=== PATIENT | female | born 1955 | race Caucasian/White ===

== ENCOUNTER 2021-04-28 05:56 | Inpatient (IN) | payer MEDICARE, OTHER ==
[~2021-04-28] VITALS: Ht 157.5 cm; Wt 56.2 kg
[~2021-04-28 05:56] MED LIST: AMOCLA875 PO; HYDR1TAB94 PO; ISTALOL2.5 ML LEFTEYE; SERT100 PO
--- NOTE | 2021-04-28 18:42 | NUR ---
SHIFT SUMMARY EATING, DRINKING, VOIDING WELL. WORKED W/ PT&OT. PAIN WELL MANAGED. PLEASANT & COOPERATIVE. CONSTANCE FORDL.
--- NOTE | 2021-04-29 04:01 | NUR ---
SHIFT SUMMARY: POD 1 LEFT TOTAL SHOULDER REPAIR PATIENT IS ALERT AND ORIENTED X4 WHILE AWAKE THOUGH HAS BEEN ABLE TO SLEEP MAJORITY OF THE SHIFT. VS ARE WNL AND IS ON RA. PAIN IS MANAGED WITH TORADOL AND TYLENOL. IMMBOLIZER IS IN PLACE FOR HER LEFT SHOULDER. SHE IS ABLE TO WIGGLE FINGERS AND HAS <3 SEC CAP REFILL. PATIENT IS A SBA TO USE THE BATHROOM. IV IS WNL AND IS ABLE TO FLUSH WELL. PATIENT IS VOIDING AND TOLERATING PO INTAKE. AQUACEL IS C/D/I. CALLS APPROPRIATELY. CALL LIGHT WITHIN REACH. THE PLAN IS TO BE DISCHARGED HOME LATER TODAY.
[2021-04-29 05:25] LABS: BASOPHILS ABSOLUTE AUTO 0.02 K/mm3 (0.00-0.23); BASOPHILS PERCENT AUTO 0 % (0-2); EOSINOPHILS PERCENT AUTO 0 % (0-6); Hematocrit 43.2 % (33.0-51.0); Hemoglobin 14.6 g/dL (11.5-16.0); IMMATURE GRAN ABSOLUTE AUTO 0.03 K/mm3 (0.00-0.10); IMMATURE GRAN PERCENT AUTO 0 % (0-1); LYMPHOCYTES PERCENT AUTO 13 % (21-46); MONOCYTES ABSOLUTE AUTO 0.93 K/mm3 (0.16-1.47); MONOCYTES PERCENT AUTO 8 % (4-13); Mean Corpuscular HGB 30.2 pg (26.0-34.0); Mean Corpuscular HGB Conc 33.8 g/dL (31.5-36.5); Mean Corpuscular Volume 89 fL (80-100); Mean Platelet Volume 10.7 fL (9.1-12.4); NEUTROPHILS ABSOLUTE AUTO 8.74 K/mm3 (1.96-9.15); NEUTROPHILS PERCENT AUTO 79 % (41-73); Platelet Count 139 K/mm3 (150-400); RDW Standard Deviation 42.7 fL (35.1-46.3); Red Blood Cell Count 4.84 M/mm3 (3.80-5.20); White Blood Cell Count 11.12 K/mm3 (4.00-11.30)
[2021-04-29 05:48] LABS: Anion Gap 7 mmol/L (6-16); Blood Urea Nitrogen 15 mg/dL (8-24); Bun/Creatinine Ratio 16.5 (12.0-20.0); CO2, Blood 23 mmol/L (21-32); Calcium, Blood 8.9 mg/dL (8.5-10.1); Chloride, Blood 108 mmol/L (98-108); Creatinine, Blood 0.91 mg/dL (0.40-1.00); Glomerular Filtration Rate >60 (60-); Glucose, Blood 102 mg/dL (70-99); Magnesium, Blood 2.6 mg/dL (1.6-2.4); Sodium, Blood 138 mmol/L (136-145)
[2021-04-29] MEDS ORDERED: ACET500 PO (10:35)
[2021-04-29] MEDS ORDERED: OXYC5 PO (10:36)
--- NOTE | 2021-04-29 12:30 | NUR ---
DISCHARGE PT CLEARED THERAPY. PAIN WELL CONTROLLED. EATING, DRINKING, VOIDING WELL. SCRIPTS, DRSGS, & POLAR PACK SENT. ESCORTED OUT VIA W/C.
== END 2021-04-29 12:54 | disposition home or self-care (01) | DRG 483 ==
LOC: SURS 05:56 → PRE IP 07:30 → SURS 11:41
PROVIDERS: ADMIT Orthopaedic Surgery
PROC: 0LS40ZZ Reposition Left Upper Arm Tendon, Open Approach (ICD-10-PCS; 2021-04-28)
PROC: 0RRK0JZ Replacement of Left Shoulder Joint with Synthetic Substitute, Open Approach (ICD-10-PCS; principal; 2021-04-28 07:30)
DX: M19.012 Primary osteoarthritis, left shoulder (principal); Z79.899 Other long term (current) drug therapy; Z98.890 Other specified postprocedural states; Z87.891 Personal history of nicotine dependence
CPT/HCPCS: 36415; 73030; 80048; 83735; 85025; 97110; 97162; 97166; 97530; 97535; A9270; C1776; J0690; J1100; J1885; J2250; J2405; J2704; J3010; J7120

== ENCOUNTER → 2022-08-24 | Outpatient (CLI) | payer OTHER ==
[~2022-08-24] MED LIST changes: +ACET500 PO; +OXYC5 PO
[2022-08-25 15:10] LABS: HPV 16 Negative (Negative); HPV 18 Negative (Negative); HPV OTHER HR TYPES Negative (Negative)
== END ==
LOC: LAB 10:00 → LAB SHORT 10:00 → RAD SHORT 10:00
PROVIDERS: Family Medicine
DX: Z01.419 Encounter for gynecological examination (general) (routine) without abnormal findings (principal)
CPT/HCPCS: 87624; G0123

== ENCOUNTER 2022-10-27 13:12 | Emergency (ER) | payer OTHER ==
[~2022-10-27] VITALS: Ht 157.5 cm; Wt 56.7 kg
[2022-10-27 13:45] LABS: BASOPHILS ABSOLUTE AUTO 0.02 K/mm3 (0.00-0.23); BASOPHILS PERCENT AUTO 0 % (0-2); EOSINOPHILS ABSOLUTE AUTO 0.01 K/mm3 (0.00-0.68); EOSINOPHILS PERCENT AUTO 0 % (0-6); Hematocrit 48.6 % (33.0-51.0); Hemoglobin 17.1 g/dL (11.5-16.0); IMMATURE GRAN ABSOLUTE AUTO 0.01 K/mm3 (0.00-0.10); IMMATURE GRAN PERCENT AUTO 0 % (0-1); LYMPHOCYTES ABSOLUTE AUTO 1.08 K/mm3 (0.84-5.20); LYMPHOCYTES PERCENT AUTO 17 % (21-46); MONOCYTES ABSOLUTE AUTO 0.34 K/mm3 (0.16-1.47); MONOCYTES PERCENT AUTO 5 % (4-13); Mean Corpuscular HGB 30.2 pg (26.0-34.0); Mean Corpuscular HGB Conc 35.2 g/dL (31.5-36.5); Mean Corpuscular Volume 86 fL (80-100); Mean Platelet Volume 10.8 fL (9.1-12.4); NEUTROPHILS ABSOLUTE AUTO 4.89 K/mm3 (1.96-9.15); NEUTROPHILS PERCENT AUTO 77 % (41-73); Platelet Count 187 K/mm3 (150-400); RDW Coefficient Variation 12.9 % (11.7-14.2); RDW Standard Deviation 40.2 fL (35.1-46.3); Red Blood Cell Count 5.67 M/mm3 (3.80-5.20); White Blood Cell Count 6.35 K/mm3 (4.00-11.30)
[2022-10-27 14:11] LABS: Albumin, Blood 4.2 g/dL (3.4-5.0); Albumin/Globulin Ratio 1.2 (0.8-1.8); Bilirubin, Total 0.8 mg/dL (0.1-1.0); Bun/Creatinine Ratio 18.8 (12.0-20.0); Calcium, Blood 10.2 mg/dL (8.5-10.1); Creatinine, Blood 0.8 mg/dL (0.40-1.00); Globulin, Blood 3.6 g/dL (2.2-4.0); Potassium, Blood 3.8 mmol/L (3.5-5.5); Total Protein, Blood 7.8 g/dL (6.4-8.2)
[2022-10-27 14:13] LABS: Influenza A, PCR NEGATIVE (NEGATIVE); Influenza B, PCR NEGATIVE (NEGATIVE); Resp Syncytial Virus, PCR NEGATIVE (NEGATIVE); SARS-Cov-2 (COVID-19) PCR, MMC NEGATIVE (NEGATIVE)
[2022-10-27] MEDS ORDERED: MECL25 PO (21:34)
[2022-10-27] MEDS ORDERED: ONDA4ODT MM (21:34)
== END 2022-10-27 21:52 | disposition home or self-care (01) ==
LOC: ER 13:12
PROVIDERS: Physician Assistant
DX: R42 Dizziness and giddiness (principal); Z79.899 Other long term (current) drug therapy; Z20.822 Contact with and (suspected) exposure to COVID-19
CPT/HCPCS: 0241U; 36415; 71045; 80053; 84484; 85025; 93005; 93010; A9270; J2405

== ENCOUNTER 2023-12-23 12:28 | Day surgery (SDC) | payer OTHER ==
[~2023-12-23] VITALS: Ht 157.5 cm; Wt 60.7 kg
[~2023-12-23 12:28] MED LIST changes: +Balanced Salt Epinephrine Irrigation Solution 500 mL IR SCH; +Lidocaine HCl/Pf 1% 5 ML VIAL XX SCH; +MECL25 PO; +Moxifloxacin HCL 0.5 MG/0.1 ML 0.4MLSYR RIGHTEYE SCH; +NS 500 ML IV ONE; +ONDA4ODT MM; +PHENYLEPHRINE\\TROPICAMIDE\\TETRACAINE OPHTHALMIC DILATING SOLN RIGHTEYE PRN; +Phenylephrine Frt 10% Opth (ORSC) ONE; +Povidone-Iodine 450 DROP/30 ML Solution ONE; +Povidone-Iodine 450 DROP/30 ML Solution RIGHTEYE SCH; -SERT100 PO; +SERT50; +TIMO.5OPSO LEFTEYE; +Triamcinolone Inj Susp 40 MG / ML 1ML Vial INJ SCH; +Triamcinolone Inj Susp 40 MG / ML 1ML Vial ONE
[2023-12-23] MEDS ORDERED: NS 500 ML IV ONE (12:45)
[2023-12-23] MEDS ORDERED: FentaNYL Citrate 50 MCG/ML 2 ML Injection ONE (12:46)
[2023-12-23] MEDS ORDERED: Midazolam HCl 1MG / ML 2ML Vial ONE (12:47)
[2023-12-23] MEDS ORDERED: Tetracaine HCl 0.5% Opth Soln 15 ml XX ONE (13:42)
[2023-12-23 14:16] VITALS: BP 103/78
== END 2023-12-23 14:33 | disposition home or self-care (01) ==
LOC: ORSCSDS 12:28
PROVIDERS: Ophthalmology
PROC: 08RJ3JZ Replacement of Right Lens with Synthetic Substitute, Percutaneous Approach (ICD-10-PCS; principal; 2023-12-23 14:00)
DX: H25.11 Age-related nuclear cataract, right eye (principal); J45.909 Unspecified asthma, uncomplicated; Z86.69 Personal history of other diseases of the nervous system and sense organs; F41.9 Anxiety disorder, unspecified; F32.A Depression, unspecified; H40.9 Unspecified glaucoma; Z79.899 Other long term (current) drug therapy
CPT/HCPCS: J2250; J3010; J3301; J7040; V2632

== ENCOUNTER 2025-05-16 11:43 | Day surgery (SDC) | payer OTHER ==
[~2025-05-16] VITALS: Ht 157.5 cm; Wt 60.8 kg
[~2025-05-16 11:43] MED LIST changes: -Balanced Salt Epinephrine Irrigation Solution 500 mL IR SCH; -Lidocaine HCl/Pf 1% 5 ML VIAL XX SCH; -Moxifloxacin HCL 0.5 MG/0.1 ML 0.4MLSYR RIGHTEYE SCH; -NS 500 ML IV ONE; -PHENYLEPHRINE\\TROPICAMIDE\\TETRACAINE OPHTHALMIC DILATING SOLN RIGHTEYE PRN; -Phenylephrine Frt 10% Opth (ORSC) ONE; -Povidone-Iodine 450 DROP/30 ML Solution ONE; -Povidone-Iodine 450 DROP/30 ML Solution RIGHTEYE SCH; -Triamcinolone Inj Susp 40 MG / ML 1ML Vial INJ SCH; -Triamcinolone Inj Susp 40 MG / ML 1ML Vial ONE
[2025-05-16] MEDS ORDERED: TIMDOROPSO BOTHEYES (12:04)
[2025-05-16] MEDS ORDERED: Lidocaine 2%-Epineph 1:200000 20 ML SDV ONE (13:29)
[2025-05-16] MEDS ORDERED: FentaNYL Citrate 50 MCG/ML 2 ML Injection ONE (13:37)
[2025-05-16] MEDS ORDERED: Tetracaine HCl/Pf 0.5% Opth Soln 4 ml ONE (13:48)
[2025-05-16] MEDS ORDERED: Gentamicin Sulfate 40 MG / ML 2ML Vial XX ONE ×2 (13:50→14:51)
[2025-05-16] MEDS ORDERED: Ethanolamine Oleate 50MG/ML 2ML Amp XX ONE ×2 (13:55→14:00)
[2025-05-16] MEDS ORDERED: Dexamethasone Sod Phos 10 MG/ML 1ML VIAL ONE (13:57)
[2025-05-16] MEDS ORDERED: Ondansetron HCl 2 MG / ML 2ML Vial ONE (13:57)
[2025-05-16] MEDS ORDERED: Ketorolac Tromethamine 30mg Vial ONE (13:57)
[2025-05-16] MEDS ORDERED: ePHEDrine Sulfate 50 MG/ML 1ML Injection ONE (13:58)
[2025-05-16] MEDS ORDERED: Bupivacaine HCl 0.25% 50 ML Vial (NON CHARGE) INJ ONE (14:00)
[2025-05-16] MEDS ORDERED: Labetalol HCL 5 MG/ML 4ML Injection (Single Dose) ONE (14:16)
[2025-05-16] MEDS ORDERED: Balanced Salt Solution 15ML LEFTEYE ONE ×2 (14:27)
[2025-05-16] MEDS ORDERED: Erythromycin 0.5% Opth Oint 1 gm ONE (14:50)
--- NOTE | 2025-05-16 15:17 | NUR ---
05/16/[address] AT BEDSIDE
[2025-05-16 15:27] VITALS: BP 119/77
--- NOTE | 2025-05-16 15:30 | NUR ---
05/16/25 1530 [address] HEARING AID RETURNED TO PATIENT AND PATIENT PLACED IN LEFT EAR
== END 2025-05-16 16:19 | disposition home or self-care (01) ==
LOC: ORSCSDS 11:43
PROVIDERS: Ophthalmology
PROC: 08T1XZZ Resection of Left Eye, External Approach (ICD-10-PCS; principal; 2025-05-16 13:15)
DX: H44.512 Absolute glaucoma, left eye (principal); Z87.891 Personal history of nicotine dependence; F41.9 Anxiety disorder, unspecified; F32.A Depression, unspecified; Z79.899 Other long term (current) drug therapy
CPT/HCPCS: 88307; A9270; C1889; J1100; J1430; J1580; J1885; J2405; J2704; J3010; J7120